=== PATIENT | female | born 2005 | race Caucasian/White ===

== ENCOUNTER 2025-07-06 15:31 | Emergency (ER) | payer OTHER, BC ==
[~2025-07-06] VITALS: Ht 157.5 cm; Wt 52.0 kg
[2025-07-06] MEDS ORDERED: IBUPROFEN 600 MG TAB PO ONE (16:15)
[2025-07-06 17:01] VITALS: BP 110/63
== END 2025-07-06 17:02 | disposition home or self-care (01) ==
LOC: ED 15:31
DX: S09.90XA Unspecified injury of head, initial encounter (principal); W21.13XA Struck by golf club, initial encounter; Z88.8 Allergy status to other drugs, medicaments and biological substances
CPT/HCPCS: 70450; 99283-25; A9270